=== PATIENT | female | born 1980 | race American Indian/Alaskan Native ===

== ENCOUNTER 2017-12-02 03:17 | Emergency (ER) | payer SELFPAY ==
[2017-12-02 03:39] VITALS: BP 133/91
--- NOTE | 2017-12-02 08:04 | Emergency Department Report ---
ED ENT HPI - General Chief complaint: Sore Throat Stated complaint: SORE THROAT Time Seen by Provider: 12/02/17 08:03 Source: patient Mode of arrival: Ambulatory Limitations: No Limitations - History of Present Illness Initial comments: This is a 37-year-old female nontoxic, well nourished in appearance, no acute signs of distress presents to the ED with c/o of sore throat and a nonproductive cough x1 week. Patient describes sore throat as swallowing razer blades. Patient denies any fever, chills, headache, stiff neck, nausea, vomiting, chest pain, shortness of breath, numbness or tingling. Patient denies any drooling or hoarseness. Patient denies any allergies or significant past medical history. MD complaint: sore throat -: week(s) (1) Location: throat Severity: mild Severity scale (0 -10): 8 Quality: aching Consistency: constant Improves with: none Worsens with: none Associated Symptoms: pain with swallowing, sore throat. denies: fever, cough, gum swelling, toothache, tinnitus, hearing loss, discharge from ear, rhinorrhea - Related Data Previous Rx's Medication Instructions Recorded Last Taken Type Amoxicillin [Amoxicillin TAB] 875 mg PO BID #20 tablet 12/02/17 Unknown Rx Ibuprofen [Motrin] 600 mg PO Q8H PRN #20 tablet 12/02/17 Unknown Rx Nystas/Diphen/Xyl Visc/Mylanta 15 ml MM Q6H PRN 5 Days ml 12/02/17 Unknown Rx [Magic Mouthwash] Allergies Allergy/AdvReac Type Severity Reaction Status Date / Time No Known Allergies Allergy Unverified 12/02/17 03:39 ED Dental HPI - General Chief complaint: Sore Throat Stated complaint: SORE THROAT Time Seen by Provider: 12/02/17 08:03 Source: patient Mode of arrival: Ambulatory Limitations: No Limitations - Related Data Previous Rx's Medication Instructions Recorded Last Taken Type Amoxicillin [Amoxicillin TAB] 875 mg PO BID #20 tablet 12/02/17 Unknown Rx Ibuprofen [Motrin] 600 mg PO Q8H PRN #20 tablet 12/02/17 Unknown Rx Nystas/Diphen/Xyl Visc/Mylanta 15 ml MM Q6H PRN 5 Days ml 12/02/17 Unknown Rx [Magic Mouthwash] Allergies Allergy/AdvReac Type Severity Reaction Status Date / Time No Known Allergies Allergy Unverified 12/02/17 03:39 ED Review of Systems ROS: Stated complaint: SORE THROAT Other details as noted in HPI Constitutional: denies: chills, fever Eyes: denies: eye pain, eye discharge, vision change ENT: throat pain. denies: ear pain Respiratory: cough. denies: shortness of breath, wheezing Cardiovascular: denies: chest pain, palpitations Endocrine: no symptoms reported Gastrointestinal: denies: abdominal pain, nausea, diarrhea Genitourinary: denies: urgency, dysuria, discharge Musculoskeletal: denies: back pain, joint swelling, arthralgia Skin: denies: rash, lesions Neurological: denies: headache, weakness, paresthesias Psychiatric: denies: anxiety, depression Hematological/Lymphatic: denies: easy bleeding, easy bruising ED Past Medical Hx - Past Medical History Previous Medical History?: No - Surgical History Past Surgical History?: No - Social History Smoking Status: Never Smoker Substance Use Type: None - Medications Home Medications: Home Medications Medication Instructions Recorded Confirmed Last Taken Type Amoxicillin [Amoxicillin TAB] 875 mg PO BID #20 tablet 12/02/17 Unknown Rx Ibuprofen [Motrin] 600 mg PO Q8H PRN #20 tablet 12/02/17 Unknown Rx Nystas/Diphen/Xyl Visc/Mylanta 15 ml MM Q6H PRN 5 Days ml 12/02/17 Unknown Rx [Magic Mouthwash] ED Physical Exam - General Limitations: No Limitations General appearance: alert, in no apparent distress - Head Head exam: Present: atraumatic, normocephalic - Eye Eye exam: Present: normal appearance Pupils: Present: normal accommodation - ENT ENT exam: Present: mucous membranes moist, TM's normal bilaterally - Expanded ENT Exam Expanded Ear exam: Present: normal external inspection Mouth exam: Present: normal external inspection, tongue normal. Absent: drooling, trismus, muffled voice, laceration Teeth exam: Present: normal inspection Throat exam: Positive: tonsillar erythema, tonsillomegaly (2+), other (Uvula midline. No abscess). Negative: tonsillar exudate, R peritonsillar mass, L peritonsillar mass - Neck Neck exam: Present: normal inspection, full ROM, lymphadenopathy (bilateral tonsillar). Absent: tenderness, meningismus - Respiratory Respiratory exam: Present: normal lung sounds bilaterally. Absent: respiratory distress, wheezes, rales, rhonchi, stridor, chest wall tenderness, accessory muscle use, decreased breath sounds, prolonged expiratory - Cardiovascular Cardiovascular Exam: Present: regular rate, normal rhythm, normal heart sounds. Absent: irregular rhythm, systolic murmur, diastolic murmur, rubs, gallop - GI/Abdominal GI/Abdominal exam: Present: soft, normal bowel sounds - Extremities Exam Extremities exam: Present: normal inspection - Back Exam Back exam: Present: normal inspection - Neurological Exam Neurological exam: Present: alert, oriented X3 - Psychiatric Psychiatric exam: Present: normal affect, normal mood - Skin Skin exam: Present: warm, dry, intact, normal color. Absent: rash ED Course Vital Signs 12/02/17 03:36 Temperature 98.8 F Pulse Rate 93 H Respiratory 17 Rate Blood Pressure 133/91 O2 Sat by Pulse 99 Oximetry - Reevaluation(s) Reevaluation #1: 12/02/17 08:41 Patient is speaking full sentences with no signs of distress noted. ED Medical Decision Making - Radiology Data Radiology results: report reviewed interpreted by me: Radiologist No pulmonary infiltrates Critical care attestation.: If time is entered above; I have spent that time in minutes in the direct care of this critically ill patient, excluding procedure time. ED Disposition Clinical Impression: Tonsillitis Disposition: DC-01 TO HOME OR SELFCARE Is pt being admited?: No Does the pt Need Aspirin: No Condition: Stable Instructions: Tonsillitis (ED) Additional Instructions: Follow-up with a primary care doctor in 3-5 days or if symptoms worsen and continue return to emergency room as soon as possible. Prescriptions: Amoxicillin [Amoxicillin TAB] 875 mg PO BID #20 tablet Ibuprofen [Motrin] 600 mg PO Q8H PRN #20 tablet PRN Reason: Pain Nystas/Diphen/Xyl Visc/Mylanta [Magic Mouthwash] 15 ml MM Q6H PRN 5 Days ml PRN Reason: Sore Throat Referrals: PRIMARY CARE, [Primary Care Provider] - 3-5 Days LUTHER ZARAGOZA MD [Staff Physician] - 3-5 Days [facility] [Outside] - 3-5 Days [facility] [Outside] - 3-5 Days Forms: Work/School Release Form(ED)
--- NOTE | 2017-12-02 08:35 | XRay Report ---
FINAL REPORT EXAM: XR CHEST ROUTINE 2V HISTORY: cough TECHNIQUE: PA and lateral chest radiographs PRIORS: None. FINDINGS: No mediastinal shift. Cardiac silhouette is not enlarged. No pneumothorax, effusion, or focal pulmonary opacity. No acute skeletal finding. IMPRESSION: No focal pulmonary opacity.
== END 2017-12-02 08:49 | disposition home or self-care (01) ==
LOC: ED 03:17
DX: J03.90 Acute tonsillitis, unspecified (principal)
CPT/HCPCS: 71046; 87116; 87430; 99283

== ENCOUNTER 2018-08-30 09:33 | Inpatient (IN) | payer MEDICAID, OTHER ==
--- NOTE | 2018-08-30 10:07 | Anesthesia Day of Surgery ---
Anesthesia Day of Surgery - Day of Surgery Patient Examined: Yes Patient H&P Reviewed: Yes Patient is NPO: Yes
--- NOTE | 2018-08-30 10:07 | Anesthesia Consultation ---
Anesthesia Consult and Med Hx Date of service: 08/30/18 - Airway Anesthetic Teeth Evaluation: Good ROM Head & Neck: Adequate Mental/Hyoid Distance: Adequate Mallampati Class: Class II Intubation Access Assessment: Good - Pulmonary Exam CTA: Yes - Cardiac Exam Cardiac Exam: RRR - Pre-Operative Health Status ASA Pre-Surgery Classification: ASA2 Proposed Anesthetic Plan: Spinal - Pulmonary Hx Asthma: No - Cardiovascular System Hx Hypertension: No - Central Nervous System Hx Seizures: No Hx Psychiatric Problems: No - Endocrine Hx Renal Disease: No Hx Hypothyroidism: No Hx Hyperthyroidism: No - Hematic Hx Anemia: No Hx Sickle Cell Disease: No - Other Systems Hx Alcohol Use: No
[2018-08-30] MEDS ORDERED: LACTATED RINGERS 1,000 ML ONE (10:21)
[2018-08-30] MEDS ORDERED: PEPCID IV ONE (11:15)
[2018-08-30] MEDS ORDERED: BICITRA PO ONE (11:15)
[2018-08-30] MEDS ORDERED: REGLAN IV ONE (11:15)
[2018-08-30] MEDS ORDERED: ceFAZolin 2 GM in NACL 0.9% 100 ML IV ONE (11:16)
[2018-08-30 11:24] LABS: Basophils % (Auto) 0.5 % (0.0-1.8); Eosinophils % (Auto) 0.1 % (0.0-4.3); Hematocrit 35.6 % (30.3-42.9); Hemoglobin 12.3 gm/dl (10.1-14.3); Lymphocytes # (Auto) 1.2 K/mm3 (1.2-5.4); Lymphocytes % (Auto) 19.7 % (13.4-35.0); Mean Corpuscular HGB Conc 35 % (30-34); Mean Corpuscular Volume 81 fl (79-97); Monocytes # (Auto) 0.6 K/mm3 (0.0-0.8); Monocytes % (Auto) 9.6 % (0.0-7.3); Platelet Count 230 K/mm3 (140-440); Red Blood Count 4.38 M/mm3 (3.65-5.03); Red Cell Distribution Width 18.5 % (13.2-15.2)
[2018-08-30] MEDS: LACTATED RINGERS 1,000 ML IV SCH ×2 (11:56→12:15)
[2018-08-30] MEDS ORDERED: PITOCin/NS 20 UNIT/1000ML DRIP 20 UNITS/1,000 ML BAG IV SCH ×2 (12:00→16:00)
[2018-08-30] MEDS ORDERED: ANCEF/STERILE WATER 2 GM/20 ML 2 GM/20 ML SYRINGE IV ONE (12:38)
[2018-08-30] MEDS ORDERED: SUBLIMAZE ONE (13:31)
[2018-08-30] MEDS ORDERED: ZOFRAN ONE (13:31)
[2018-08-30] MEDS ORDERED: NACL 0.9% IR ONE (13:46)
[2018-08-30] MEDS ORDERED: NEO SYNEPHRINE/NS Syringe(OR USE) IV ONE (14:39)
[2018-08-30] MEDS ORDERED: BENADRYL ONE (14:39)
[2018-08-30] MEDS ORDERED: TORADOL ONE (14:39)
[2018-08-30] MEDS ORDERED: DILAUDID ONE (14:54)
--- NOTE | 2018-08-30 15:26 | History and Physical Report ---
History of Present Illness Date of examination: 08/30/18 Date of admission: 08/30/18 09:33 Chief complaint: Scheduled History of present illness: 38-year-old 002 at 39+1 weeks who presents for a repeat delivery and bilateral tubal ligation. The patient has a history of 2 prior deliveries. Her course is complicated by advanced maternal age, uterine fibroids, and anemia. The patient has undesired fertility. Past History Past Medical History: no pertinent history Past Surgical History: section Social history: - Obstetrical History Expected Date of Delivery: 09/05/18 Actual Gestation: 39 Week(s) 1 Day(s) : 3 Para: 2 Hx # Term Pregnancies: 2 Number of Pregnancies: 0 Spontaneous Abortions: 0 Induced : 0 Number of Living Children: 2 Medications and Allergies Allergies Allergy/AdvReac Type Severity Reaction Status Date / Time No Known Allergies Allergy Verified 05/20/18 18:46 Home Medications Medication Instructions Recorded Confirmed Last Taken Type Amoxicillin [Amoxicillin TAB] 875 mg PO BID #20 tablet 12/02/17 Unknown Rx Ibuprofen [Motrin] 600 mg PO Q8H PRN #20 tablet 12/02/17 Unknown Rx Nystas/Diphen/Xyl Visc/Mylanta 15 ml MM Q6H PRN 5 Days ml 12/02/17 Unknown Rx [Magic Mouthwash] Active Meds: Active Medications Oxytocin/Sodium Chloride (Pitocin/Ns 20 Unit/1000ml Drip) 20 units in 1,000 mls @ 0 mls/hr IV TITR CATE Lactated Ringer's (Lactated Ringers) 1,000 mls @ 2,250 mls/hr IV PREOP CATE Stop: 08/31/18 12:27 Last Admin: 08/30/18 12:15 Dose: 2,250 mls/hr Documented by: Review of Systems All systems: negative Genitourinary: no vaginal bleeding, no contractions - Vital Signs Vital signs: Vital Signs Temp 98.4 F 08/30/18 10:23 Temp Pulse Resp BP Pulse Ox 98.4 F 98 H 96 08/30/18 10:23 08/30/18 12:32 08/30/18 12:32 - Physical Exam Breasts: Positive: deferred Cardiovascular: Regular rate Lungs: Positive: Clear to auscultation Abdomen: Positive: normal appearance Results Result Diagrams: 08/30/18 11:00 Abnormal lab results 08/30/18 Range/Units 11:00 MCHC 35 H (30-34) % RDW 18.5 H (13.2-15.2) % [place] % (Auto) 9.6 H (0.0-7.3) % Seg Neutrophils % 70.1 H (40.0-70.0) % All other labs normal. Assessment and Plan - Patient Problems (1) Previous section Current Visit: Yes Status: Acute Plan to address problem: Scheduled for repeat delivery and bilateral tubal ligation. (2) Unwanted fertility Current Visit: Yes Status: Acute (3) Advanced maternal age (AMA) in Current Visit: Yes Status: Acute
--- NOTE | 2018-08-30 15:27 | Procedure Note ---
OB Delivery Note - Delivery Date of Delivery: 08/30/18 Surgeon: JARON ABREU Estimated blood loss: 500cc - Section Preop diagnosis: repeat Postop diagnosis: same section procedure: section, repeat low transverse, bilateral tubal ligation Disposition: PACU - Infant A at 1 minute: 8 at 5 minutes: 9 Gender: Male (weight 7 lbs. 6 oz.)
--- NOTE | 2018-08-30 15:32 | Operative Report ---
Operative Report Operative Report: Date of surgery: 08/30/2018 Preoperative diagnosis: at 39+1 weeks; previous delivery; undesired fertility; advanced maternal age Postoperative diagnosis: Same as above Procedure: Repeat low transverse delivery and bilateral tubal ligation via [place] method Surgeon: Sarah You M.D. Anesthesia: Regional Estimated blood loss: 500 mL Findings: Liveborn male with Apgars of 8 and 9 weight 7 lbs. 6 oz. Indications:-year-old 1 at 39+ weeks who presents for repeat delivery and bilateral tubal ligation. Procedure: The patient was taken to the operating room and given regional anesthesia without complication. She was prepped and draped in a normal sterile fashion. A Pfannenstiel skin incision was made down to layer the fascia which was nicked in the midline extended laterally with the Bovie cautery. The superior aspect of the rectus fascia was grasped with [place] clamps x2 and the rectus muscles off sharply. This was done in inferior fashion as well. The rectus muscle midline and peritoneum entered bluntly. An [place]on retractor was then inserted. A bladder blade was placed. The vesicouterine peritoneum was then entered sharply with Metzenbaum scissors. A bladder flap was created digitally. A low transverse uterine incision was then made and extended digitally. There was meconium-stained fluid upon entry into the uterine cavity. Experienced difficulty elevating the head out of the pelvis for delivery. The Kiwi vacuum was applied and was used to assist with delivery of the head. The head was delivered through the incision with fundal pressure. The cord was clamped and cut x2 and infant was passed off to pediatrics. The placenta was then manually extracted. Secondary to the large size of the uterus as a result of the uterine fibroid experienced difficulty exteriorizing the uterus. The uterus was then exteriorized and cleared of clots and debris. The uterine incision was then closed in a running locked fashion with 0 Vicryl additional imbricating stitch was applied for 2 layer closure. Attention was then turned to the patient's tube with ampullary portion of the tube was grasped with a Ric. The mesosalpinx was entered with the Bovie cautery and a window was created. The distal and proximal area of the tube were ligated 2 with 0 chromic. A 1 cm portion was then excised. The cyst on the contralateral side as well. The posterior cul-de-sac was then copiously irrigated. The uterus was replaced back into the abdomen and pelvis were the gutters were then irrigated. The [place]on retractor was then removed. The peritoneum was then reapproximated with 3-0 Vicryl incorporating the rectus muscle. The fascia was then closed with 0 Vicryl in a running fashion. The skin was then reapproximated with 3-0 Monocryl on a Riley needle subcuticular fashion. Steri-Strips to place across the incision and a Crede procedures performed at the end of the surgery. A pressure dressing was applied to the incision. The surgery productive of a liveborn male with Apgars of 8 and 9 weight 7 lbs. 6 oz. The patient was taken to the recovery room in stable condition. All sponge laps and needle counts correct x2.
[2018-08-30] MEDS ORDERED: ZOFRAN IV PRN ×2 (15:33→15:38)
[2018-08-30] MEDS ORDERED: TUCKS PAD TP PRN (15:33)
[2018-08-30] MEDS ORDERED: LANSINOH TP PRN (15:33)
[2018-08-30] MEDS ORDERED: NARCAN 0.4 MG/1 ML IV PRN ×2 (15:33→15:38)
[2018-08-30] MEDS ORDERED: MORPHINE IV PRN ×2 (15:33→15:38)
[2018-08-30] MEDS ORDERED: TYLENOL PO PRN (15:33)
[2018-08-30] MEDS ORDERED: PHENERGAN PO PRN (15:38)
[2018-08-30] MEDS ORDERED: DILAUDID IV PRN ×2 (15:38)
[2018-08-30] MEDS ORDERED: PHENERGAN PR PRN (15:38)
--- NOTE | 2018-08-30 15:41 | Post Anesthesia Evaluation ---
- Post Anesthesia Evaluation Patient Participated: Yes Airway Patent: Yes Stable Respiratory Function: Yes Nausea/Vomiting: No Temp > 96.8F: Yes Pain Manageable: Yes Adequeate Hydration: Yes Anesthesia Complications: No Block Receding Appropriately: Yes Patient on Ventilator: No
[2018-08-30] MEDS ORDERED: SODIUM CHLORIDE FLUSH SYRINGE 10 ML IV NR ×2 (16:00)
[2018-08-30] MEDS: TORADOL IV PRN (17:22)
[2018-08-30] MEDS: PERCOCET 5/325 PO PRN (19:43)
[2018-08-31] MEDS ORDERED: D5LR 1,000 ML IV SCH (01:00)
[2018-08-31] MEDS: PERCOCET 5/325 PO PRN ×4 (02:17→21:38)
[2018-08-31 04:36] LABS: Hematocrit 27.8 % (30.3-42.9); Hemoglobin 9.8 gm/dl (10.1-14.3)
[2018-08-31] MEDS: TORADOL IV PRN (06:31)
--- NOTE | 2018-08-31 11:48 | Progress Note ---
Assessment and Plan - Patient Problems (1) Previous section Current Visit: Yes Status: Acute Plan to address problem: routine postop care (2) Unwanted fertility Current Visit: Yes Status: Acute (3) Advanced maternal age (AMA) in Current Visit: Yes Status: Acute Subjective - Subjective Date of service: 08/31/18 Interval history: Patient reports being able to void. Pain adequately controlled. No flatus. Tolerating clears Patient reports: appetite normal, voiding normally, pain well controlled, no flatus : doing well Objective - Vital Signs Latest vital signs: Vital Signs Temp Pulse Resp BP BP Pulse Ox 08/31/18 07:09 98.0 F 98 H 18 123/69 08/31/18 04:24 98.4 F 107 H 16 109/68 97 08/31/18 00:06 98.5 F 114 H 16 122/61 97 08/30/18 19:54 98.3 F 119 H 16 118/71 96 08/30/18 17:35 20 129/66 98 08/30/18 16:50 98.6 F 108 H 16 129/66 97 08/30/18 16:35 98.3 F 95 H 17 125/75 97 08/30/18 16:20 98 H 20 123/72 98 08/30/18 16:05 101 H 15 114/75 99 08/30/18 15:50 103 H 19 114/69 99 08/30/18 15:45 107 H 14 125/77 100 08/30/18 15:40 114 H 14 129/72 100 08/30/18 15:34 98.2 F 104 H 18 119/48 100 08/30/18 12:32 98 H 96 08/30/18 12:27 99 H 96 08/30/18 12:22 103 H 95 08/30/18 12:18 93 H 94 08/30/18 12:17 94 H 94 08/30/18 12:12 96 H 95 08/30/18 12:07 93 H 96 Intake and Output 08/30/18 08/31/18 08/31/18 22:59 06:59 14:59 Intake Total 150 480 Output Total 200 1000 Balance -50 -1000 480 Intake: IV 150 Oral 480 Output: Urine 200 1000 Indwelling Catheter 600 Void 400 Other: Total, Intake Amount 480 Total, Output Amount 400 # Voids Void 1 - Exam Incision: Present: dressed - Labs Labs: Abnormal lab results 08/31/18 Range/Units 03:58 Hgb 9.8 L (10.1-14.3) gm/dl Hct 27.8 L D (30.3-42.9) %
[2018-08-31] MEDS: IBUPROFEN PO PRN ×2 (15:03→21:38)
[2018-09-01] MEDS: PERCOCET 5/325 PO PRN ×2 (04:46→12:37)
[2018-09-01] MEDS: IBUPROFEN PO PRN ×2 (04:46→12:38)
--- NOTE | 2018-09-01 11:59 | Progress Note ---
Assessment and Plan - Patient Problems (1) Previous section Current Visit: Yes Status: Acute Plan to address problem: patient doing well discharge home (2) Unwanted fertility Current Visit: Yes Status: Acute (3) Advanced maternal age (AMA) in Current Visit: Yes Status: Acute Subjective - Subjective Date of service: 09/01/18 Interval history: Patient states feels better. Tolerating regular diet Patient reports: appetite normal, voiding normally, pain well controlled : doing well Objective - Vital Signs Latest vital signs: Vital Signs Temp Pulse Resp BP BP Pulse Ox 09/01/18 07:58 98.0 F 106 H 18 107/64 98 09/01/18 01:28 98.1 F 108 H 18 104/68 96 08/31/18 16:32 98.4 F 113 H 18 117/71 08/31/18 12:13 98.3 F 113 H 18 120/69 Intake and Output 08/31/18 09/01/18 09/01/18 22:59 06:59 14:59 Intake Total 480 360 Balance 480 360 Intake: Oral 480 Intake, Free Water 360 Other: Total, Intake Amount 480 # Voids Void 2 - Exam Uterus: Present: normal, firm Incision: Present: normal
--- NOTE | 2018-09-01 12:01 | Discharge Summary ---
Providers - Providers Date of Admission: 08/30/18 09:33 Date of discharge: 09/01/18 Attending physician: JARON ABREU Primary care physician: JARON ABREU Hospitalization Reason for admission: section Delivery: Procedure: section, bilateral tubal ligation, repeat low transverse Discharge diagnosis: IUP at term delivered Hospital course: Patient admitted for scheduled for delivery. See op note. Postop unremarkable Condition at discharge: Good Disposition: DC-01 TO HOME OR SELFCARE - Discharge Diagnoses (1) Previous section Status: Acute (2) Unwanted fertility Status: Acute (3) Advanced maternal age (AMA) in Status: Acute Plan - Discharge Medications Prescriptions: Ibuprofen [Motrin] 800 mg PO Q8HR PRN #60 tablet PRN Reason: Pain, Mild (1-3) oxyCODONE /ACETAMINOPHEN [Percocet 5/325] 1 tab PO Q6HR PRN #30 tablet PRN Reason: Pain - Provider Discharge Summary Activity: no sex for 6 weeks, no heavy lifting 4 weeks, no strenuous exercise Diet: routine Instructions: routine Additional instructions: [] Smoking cessation referral if applicable(refer to patient education folder for contact #) [] Refer to [facility]'s [facility] Booklet Call your doctor immediately for: * Fever > 100.5 * Heavy vaginal bleeding ( >1 pad per hour) * Severe persistent headache * Shortness of breath * Reddened, hot, painful area to leg or breast * Drainage or odor from incision. * Keep incision clean and dry at all times and follow doctor's instructions regarding bathing/showering schedule followup in 2 weeks - Follow up plan
[2018-09-01 12:44] VITALS: BP 111/62
== END 2018-09-01 15:30 | disposition home or self-care (01) | DRG 766 ==
LOC: APU 09:33 → OB 16:44
PROVIDERS: ADMIT Obstetrics & Gynecology; ATTEND Obstetrics & Gynecology
PROC: 10D00Z1 Extraction of Products of Conception, Low, Open Approach (ICD-10-PCS; principal; 2018-08-30)
PROC: 0UB70ZZ Excision of Bilateral Fallopian Tubes, Open Approach (ICD-10-PCS; 2018-08-30)
DX: O34.211 Maternal care for low transverse scar from previous cesarean delivery (principal); Z37.0 Single live birth; Z3A.39 39 weeks gestation of pregnancy; Z79.899 Other long term (current) drug therapy
CPT/HCPCS: 36415; 85014; 85018; 85025; 86592; 86706; 86762; 86850; 86900; 86901; 87529; 87806; 88302; G0378; J0690; J1170; J1200; J1885; J2270; J2370; J2405; J2590; J2765; J3010; J7120; J7121